=== PATIENT | female | born 1980 | race African-American/Black ===

== ENCOUNTER → 2024-08-01 | Outpatient (RCR) | payer MEDICARE ==
[~2024-08-01] MED LIST: LIDOCAINE VISC 2% SOLN 15 ML UDC ONE; LIDOCAINE/PRILOCAINE 2.5-2.5% KIT ONE
== END ==
LOC: WCC 07-24 10:30
PROVIDERS: ATTEND Nurse Practitioner Family
DX: L89.323 Pressure ulcer of left buttock, stage 3 (principal)